=== PATIENT | female | born 1950 | race Caucasian/White ===

== ENCOUNTER 2016-11-08 15:05 | Inpatient (IN) | END 2016-11-18 17:55 | DRG 494 | DX: S82.431A Displaced oblique fracture of shaft of right fibula, initial encounter for closed fracture (principal); E11.9 Type 2 diabetes mellitus without complications; F41.9 Anxiety disorder, unspecified; E78.5 Hyperlipidemia, unspecified; K80.20 Calculus of gallbladder without cholecystitis without obstruction; W01.0XXA Fall on same level from slipping, tripping and stumbling without subsequent striking against object, initial encounter; R49.0 Dysphonia; Z82.49 Family history of ischemic heart disease and other diseases of the circulatory system; R91.1 Solitary pulmonary nodule; K59.00 Constipation, unspecified ==

== ENCOUNTER 2016-11-18 18:03 | Inpatient (IN) | END 2016-11-26 20:30 | disposition home health service (06) | DRG 948 | DX: G89.18 Other acute postprocedural pain (principal); E87.5 Hyperkalemia; E11.9 Type 2 diabetes mellitus without complications; E78.5 Hyperlipidemia, unspecified; F32.9 Major depressive disorder, single episode, unspecified; D64.9 Anemia, unspecified; K80.20 Calculus of gallbladder without cholecystitis without obstruction; K59.00 Constipation, unspecified; R20.0 Anesthesia of skin; R91.1 Solitary pulmonary nodule; R06.00 Dyspnea, unspecified; F41.8 Other specified anxiety disorders; B34.9 Viral infection, unspecified; Z87.81 Personal history of (healed) traumatic fracture; Z82.49 Family history of ischemic heart disease and other diseases of the circulatory system; Z73.89 Other problems related to life management difficulty; Z98.890 Other specified postprocedural states ==

== ENCOUNTER → 2017-04-19 | Outpatient (CLI) | END | disposition home or self-care (01) ==